=== PATIENT | female | born 1990 | race Caucasian/White ===

== ENCOUNTER 2017-05-31 21:56 | Inpatient (IN) ==
[2017-05-31] MEDS ORDERED: STADOL IV PRN ×3 (21:59)
[2017-05-31] MEDS ORDERED: BRETHINE SUBQ PRN (21:59)
[2017-05-31] MEDS ORDERED: PEPCID PO PRN (21:59)
[2017-05-31] MEDS ORDERED: TYLENOL PO PRN (21:59)
[2017-05-31] MEDS ORDERED: ZOFRAN IV PRN (21:59)
[2017-05-31] MEDS ORDERED: PEPCID IV PRN (21:59)
[2017-05-31] MEDS ORDERED: AMBIEN PO PRN (21:59)
[2017-05-31] MEDS ORDERED: PITOCIN 30 UNITS/LR 30 UNITS/500 ML IV.SOLN IV SCH (21:59)
[2017-05-31] MEDS: LR 1,000 ML IV ONE (22:30)
[2017-05-31 22:47] LABS: MANUAL DIFF NEEDED? NO
[2017-05-31 22:47] LABS: URINE SOURCE VOIDED
[2017-05-31 22:50] LABS: BASO% 0.1 % (0.0-0.8); EOS# 0.02 X1000 (0.0-0.7); EOS% 0.2 % (0.0-10.0); HEMATOCRIT 35.9 % (37.0-47.0); HEMOGLOBIN 12.6 g/dL (12.0-16.0); IMM GRAN# 0.04 X1000 (0.0-0.04); IMM GRAN% 0.4 % (0.0-0.5); LYMPH# 1.36 X1000 (1.2-3.4); LYMPH% 12.1 % (20.5-51.1); MCH 31.1 PG (27-31); MCHC 35.1 g/dL (33-37); MCV 88.6 FL (81-99); MONO# 0.61 X1000 (0.11-0.59); MONO% 5.4 % (1.7-9.3); MPV 11.5 FL (7.4-10.4); NEUT% 81.8 % (42.2-75.2); PLT 162 X1000 (130-400); RBC 4.05 XMIL (4.2-5.4)
[2017-05-31 22:54] LABS: BILIRUBIN URINE NEGATIVE (NEGATIVE); BLOOD URINE NEGATIVE (NEGATIVE); CLARITY CLEAR (CLEAR); COLOR YELLOW; LEUKOCYTES URINE TRACE (NEGATIVE); NITRITE URINE NEGATIVE (NEGATIVE); PH URINE 6.5; PROTEIN URINE TRACE mg/dL (NEGATIVE); UROBILINOGEN URINE NORMAL
[2017-05-31 23:05] LABS: UR AMPHETAMINES QUAL NONE DETECTED (NONE DETECT); UR BARBITUATES QUAL NONE DETECTED (NONE DETECT); UR BENZODIAZEPIN QUAL NONE DETECTED (NONE DETECT); UR CANNABINOIDS QUAL NONE DETECTED (NONE DETECT); UR COCAINE QUAL NONE DETECTED (NONE DETECT); UR MDMA QUAL NONE DETECTED (NONE DETECT); UR METHADONE QUAL NONE DETECTED (NONE DETECT); UR METHAMPHETAMINE QUAL NONE DETECTED (NONE DETECT); UR OPIATES QUAL NONE DETECTED (NONE DETECT); UR OXYCODONE QUAL NONE DETECTED (NONE DETECT); UR PCP QUAL NONE DETECTED (NONE DETECT); UR TCA QUAL NONE DETECTED (NONE DETECT)
[2017-06-01] MEDS ORDERED: CYTOTEC PO ONE (02:00)
[2017-06-01] MEDS ORDERED: FENTANYL-BUPIV-NS 2 MCG-0.1% 200 ML EPIDURAL PRN (07:03)
[2017-06-01] MEDS: LR 1,000 ML IV ONE (07:29)
[2017-06-01] MEDS ORDERED: XYLOCAINE-MPF 1% INJ ONE (09:09)
[2017-06-01] MEDS ORDERED: MINERAL OIL ONE (09:10)
[2017-06-01] MEDS ORDERED: HYDROXYZINE PO PRN (11:12)
[2017-06-01] MEDS ORDERED: XYLOCAINE-MPF 1% INJ PRN (11:12)
[2017-06-01] MEDS ORDERED: BOOSTRIX VACCINE IM ONE (11:12)
[2017-06-01] MEDS ORDERED: NORCO-10 PO PRN (11:12)
[2017-06-01] MEDS ORDERED: PITOCIN IM PRN (11:12)
[2017-06-01] MEDS ORDERED: NORCO-5 PO PRN (11:12)
[2017-06-01] MEDS ORDERED: BENADRYL PO PRN (11:12)
[2017-06-01] MEDS ORDERED: AMBIEN PO PRN (11:12)
[2017-06-01] MEDS ORDERED: MINERAL OIL PO PRN (11:12)
[2017-06-01] MEDS ORDERED: PERI MEDS (DERMOPLAST/NUPERCAINAL/TUCKS) MISC PRN (11:12)
[2017-06-01] MEDS ORDERED: M-M-R II VACCINE SUBQ ONE (11:12)
[2017-06-01] MEDS ORDERED: HYDROXYZINE IM PRN (11:12)
[2017-06-01] MEDS ORDERED: PITOCIN 20 UNITS/LR 20 UNITS/1,000 ML IV.SOLN IV SCH (11:12)
[2017-06-01] MEDS ORDERED: PITOCIN 30 UNITS/LR 30 UNITS/500 ML IV.SOLN IV ONE (11:12)
[2017-06-01] MEDS ORDERED: CYTOTEC PO PRN (11:12)
[2017-06-01] MEDS ORDERED: BENADRYL IV PRN (11:12)
[2017-06-01] MEDS: MOTRIN PO PRN ×2 (12:45→21:03)
--- NOTE | 2017-06-01 14:11 | OPERATIVE NOTE ---
PROCEDURE DATE: 06/01/2017 PREDELIVERY DIAGNOSES: Intrauterine at term for labor induction. POST DELIVERY DIAGNOSES: 1. Intrauterine at term for labor induction. 2. Shoulder dystocia. 3. macrosomia. PROCEDURE: Vaginal delivery. PHYSICIAN: Dr. Odonnell. ANESTHESIA: Epidural by Dr. Downing. FINDINGS: Viable male infant 9 pounds, 8, 9 Apgars. Placenta was spontaneous, intact. Cord was 3 vessels. Second-degree midline laceration repaired with 3-0 Polysorb in the usual fashion. ESTIMATED BLOOD LOSS: 100 mL. COUNTS: All counts correct. DESCRIPTION OF PROCEDURE: Ms. Cerrato 26-year-old 2, para 1 at 39+ weeks with a favorable cervix for induction. She came in last night. One dose of Cytotec. This morning she was artificially ruptured, started on Pitocin, received epidural anesthesia, made rapid progress to complete. With very little pushing she crowned at which point the bed was broken down and she was prepped and draped. With the next push she continued pushing until the head delivered. 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 This followed delivery of the baby. The baby was placed on the mother's abdomen. Cord doubly clamped and cut. Care of infant taken over by nursery personnel. Cord blood was obtained, 3 vessel cord noted and then cord pulled to the side and second-degree laceration repaired then gentle traction on the cord resulted in delivery of the placenta. It was inspected, found to be intact. There were no other lacerations. No clots or foreign material in the vagina. All counts were correct. Estimated blood loss 100 mL. Expect routine . cc: Husam Odonnell MD
[2017-06-01] MEDS: PERICOLACE PO SCH (21:03)
[2017-06-01] MEDS ORDERED: EPIFOAM FOAM TOP PRN (22:40)
[2017-06-02 06:17] LABS: MANUAL DIFF NEEDED? NO
[2017-06-02 06:42] LABS: BASO% 0.1 % (0.0-0.8); EOS# 0.04 X1000 (0.0-0.7); EOS% 0.5 % (0.0-10.0); HEMOGLOBIN 10.5 g/dL (12.0-16.0); IMM GRAN# 0.03 X1000 (0.0-0.04); IMM GRAN% 0.4 % (0.0-0.5); LYMPH# 1.39 X1000 (1.2-3.4); LYMPH% 17.6 % (20.5-51.1); MCHC 32.8 g/dL (33-37); MCV 91.4 FL (81-99); MONO# 0.44 X1000 (0.11-0.59); MONO% 5.6 % (1.7-9.3); MPV 11.3 FL (7.4-10.4); NEUT% 75.8 % (42.2-75.2); PLT 125 X1000 (130-400)
[2017-06-02] MEDS: PRECARE PO SCH (08:21)
[2017-06-02] MEDS: MOTRIN PO PRN (18:33)
[2017-06-02] MEDS: PERICOLACE PO SCH (20:44)
[2017-06-03] MEDS: PRECARE PO SCH (07:44)
[2017-06-03 07:48] VITALS: BP 127/83
== END 2017-06-03 10:28 | disposition home or self-care (01) ==
LOC: P.LD 21:56 → P.WC 06-01 16:14
PROVIDERS: ADMIT Obstetrics & Gynecology; ATTEND Obstetrics & Gynecology